=== PATIENT | female | born 1945 | race Caucasian/White ===

== ENCOUNTER → 2017-03-19 | Outpatient (CLI) | payer OTHER ==
[~2017-03-19] MED LIST: COZAAR100 MG PO; GLUCOPHAGE 500500 MG PO; IRON325 M1 PO; NORCO 5-325 TA1 EACH PO; NORVASC 5 MG TAB5 MG PO; PROTONIX 40 MG40 M1 PO; ZOCOR20 MG PO
== END ==
LOC: US 14:22
DX: M79.605 Pain in left leg (principal); M25.562 Pain in left knee; M71.22 Synovial cyst of popliteal space [Baker], left knee
CPT/HCPCS: 73564; 93971

== ENCOUNTER → 2020-11-21 | Outpatient (CLI) | payer OTHER, SELFPAY ==
[~2020-11-21] MED LIST changes: +TRULICITY1.5 MG/0.5 SQ
== END ==
LOC: KOH-I 09:02
DX: M51.16 Intervertebral disc disorders with radiculopathy, lumbar region (principal); M47.816 Spondylosis without myelopathy or radiculopathy, lumbar region; M48.061 Spinal stenosis, lumbar region without neurogenic claudication; M47.817 Spondylosis without myelopathy or radiculopathy, lumbosacral region; M51.27 Other intervertebral disc displacement, lumbosacral region; M48.07 Spinal stenosis, lumbosacral region
CPT/HCPCS: 72148

== ENCOUNTER → 2021-01-01 | Outpatient (CLI) | payer OTHER ==
[2021-01-01 14:02] LABS: BUN/CREATININE RATIO 20 (0-10)
== END ==
LOC: LAB 12:51
PROVIDERS: Internal Medicine Nephrology
DX: R80.9 Proteinuria, unspecified (principal)
CPT/HCPCS: 80053; 82570; 84156

== ENCOUNTER → 2021-02-13 | Outpatient (CLI) | payer OTHER ==
[2021-02-13 13:14] LABS: BUN/CREATININE RATIO 20 (0-10)
[2021-02-13 13:16] LABS: URINE TOTAL PROTEIN 61 mg/dl
== END ==
LOC: LAB 11:45
PROVIDERS: Internal Medicine Nephrology
DX: R80.9 Proteinuria, unspecified (principal)
CPT/HCPCS: 36415; 80053; 82570; 84156

== ENCOUNTER → 2021-06-27 | Outpatient (CLI) | payer OTHER ==
[2021-06-27 13:15] LABS: BUN/CREATININE RATIO 21 (0-10)
[2021-06-27 13:31] LABS: URINE TOTAL PROTEIN 43 mg/dl
== END ==
LOC: LAB 12:08
PROVIDERS: Internal Medicine Nephrology
DX: R80.9 Proteinuria, unspecified (principal)
CPT/HCPCS: 36415; 80053; 84156

== ENCOUNTER → 2021-11-05 | Outpatient (CLI) | payer OTHER ==
[2021-11-06 09:11] LABS: A/G RATIO 1.9 (1.2-2.2); BILIRUBIN, TOTAL 0.5 mg/dL (0.0-1.2); CALCIUM, SERUM 9.6 mg/dL (8.7-10.3); CREATININE, SERUM 0.66 mg/dL (0.57-1.00); GLOBULIN, TOTAL 2.5 g/dL (1.5-4.5); POTASSIUM, SERUM 4.3 mmol/L (3.5-5.2); PROTEIN, TOTAL, SERUM 7.3 g/dL (6.0-8.5)
== END ==
LOC: LAB 11:05
PROVIDERS: Internal Medicine Nephrology
DX: R80.9 Proteinuria, unspecified (principal)
CPT/HCPCS: 36415; 80053; 82570; 84156

== ENCOUNTER → 2022-02-19 | Outpatient (CLI) | payer OTHER ==
[2022-02-19 12:41] LABS: URINE TOTAL PROTEIN 78 mg/dl
[2022-02-19 13:14] LABS: BUN/CREATININE RATIO 22 (0-10)
== END ==
LOC: LAB 11:23
PROVIDERS: Internal Medicine Nephrology
DX: R80.9 Proteinuria, unspecified (principal)
CPT/HCPCS: 36415; 80053; 82570; 84156

== ENCOUNTER → 2022-02-26 | Outpatient (CLI) | payer OTHER | LOC: KOH-I 11:17 | DX: R80.9 Proteinuria, unspecified (principal) | CPT/HCPCS: 76775 ==

== ENCOUNTER → 2022-06-04 | Outpatient (CLI) | payer OTHER ==
[2022-06-04 11:43] LABS: BUN/CREATININE RATIO 24 (0-10)
== END ==
LOC: LAB 10:29
PROVIDERS: Internal Medicine Nephrology
DX: R80.9 Proteinuria, unspecified (principal)
CPT/HCPCS: 36415; 80053; 82570; 84156